=== PATIENT | female | born 1955 | race Caucasian/White ===

== ENCOUNTER 2018-10-25 19:25 | Emergency (ER) | payer OTHER ==
--- OUTSIDE RECORDS SUMMARY | 2018-10-25 19:40 | XMS REPORT | Continuity of Care Document ---
:1955 External Reference #:[id number] Author Name Pranav Spicer M.D. Address [address] [place] [address] Care Team Providers Name Role Phone Alf Luong M.D. Primary Care Physician Unavailable Payers Date Identification Numbers Payment Provider Subscriber Policy Number: [id number] [employer] Ppo/Pos/Epo/Nap Sulema Carter PayID: [id number] [address] [place] [address] Problems Active Problems Provider Date History of non-Hodgkins lymphoma Onset: Osteoporosis Onset: Osteopenia Onset: Vitreous degeneration Pranav Spicer M.D. Onset: 07/02/2016 Ocular hypertension Pranav Spicer M.D. Onset: 07/02/2016 Nuclear senile cataract Pranav Spicer M.D. 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 ETOH Use Drinks 5 Alcoholic Beverages Per Week Tobacco Use Start: Unknown End: Patient is a former 7 years tobacco use Unknown smoker in her 20's Recreational Drug Use Denies Drug Use Smoking Status Reviewed: 09/29/18 Patient is a former 7 years tobacco use smoker in her 20's Allergies, Adverse Reactions, Alerts Description No Known Drug Allergies Medications Active Medications SIG Qnty Indications Ordering Provider Date Multivitamin Adult Unknown Tablets Pantoprazole Sodium 1 a day Unknown 20mg Tablets DR History Medications Calcium 1000 + D Unknown - 08/20/2017 [id number] Tablets Procedures Date Code Description Status 08/24/2017 11329 Visual Field Exam Extended Completed 08/24/2017 65733 Est Patient Comprehensive Exam Completed 08/04/2016 29413 Determination Of Refractive State Completed 08/04/2016 21936 Pachymetry Completed 07/02/2016 44091 Scanning Computerized Ophthalmic Diagnostic Imag Posterior Completed Seg On 07/02/2016 00363 New Patient Comprehensive Exam Completed Encounters Type Date Location Provider Dx Diagnosis Office Visit 08/04/2016 [facility] Lee, Pranav Spicer, H43.811 Vitreous 10:00a , tatyana Leonard degeneration, right eye H40.053 Ocular hypertension, bilateral Plan of Treatment 09/29/2018 - Pranav Spicer M.D.H40.053 Ocular hypertension, bilateralComments:Smoking can increase the risk of developing or worsening any eye related disease, as well as affect your overall health. If you are a smoker , we strongly recommend that you quit.If you are not a smoker, we strongly recommend that you do not start. You have Ocular Hypertension in both eyes. This means that your eye pressure is higher than average, but you have not been diagnosed with Glaucoma.Follow up:2 Year Follow Up DFE, OCT ON You can expect to have your eyes dilated at your next visit. If Dr. Spicer orders any additional testing, it may require extra time. We recommend that you bring sunglasses, as dilation drops often make you light sensitive until they wear off. We always recommend you bring someone to drive you home if you are uncomfortable driving with your eyes dilated. If you have anyquestions before your next visit, feel free to call our office at .H43.817 Vitreous degeneration, bilateralComments:You have a Posterior Vitreous Detachment. If you have any changes in your floaters or flashing lights, please contact this office.H25.13 Age-related nuclear cataract, bilateralComments:You have been diagnosed with cataracts. If you are happy with your vision as it is now, then we willsee you at your next scheduled appointment. If you feel like your vision is getting worse before your scheduled appointment, please call Kristen at [phone].
--- NOTE | 2018-10-25 21:14 | ED ---
Throat Pain/Nasal Congestion - HPI Summary HPI Summary: A 63 y/o female presents to [facility] with a chief complaint of right ear pain below the lobe of her ear since yesterday. At triage she rated her pain as a 3/ 10 in severity and also states that she felt feverish. At triage a temperature of 99 is noted. 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 - History of Current Complaint Chief Complaint: EDEarPain Time Seen by Provider: 10/25/18 21:03 Hx Obtained From: Patient Onset/Duration: Sudden Onset, Lasting Hours, Still Present Severity: Mild Associated Signs And Symptoms: Positive: Negative Cough: None - Allergies/Home Medications Allergies/Adverse Reactions: Allergies Allergy/AdvReac Type Severity Reaction Status Date / Time No Known Allergies Allergy Unverified 10/25/18 21:01 PMH/Surg Hx/FS Hx/Imm Hx Musculoskeletal History: Reports: Hx Osteoporosis Denies: Hx Rheumatoid Arthritis Sensory History: Denies: Hx Deafness EENT History: Denies: Hx Deafness - Cancer History Hx Chemotherapy: Yes - [id number]- 15 YEARS AGO Hx Radiation Therapy: Yes Infectious Disease History: No Infectious Disease History: Denies: Traveled Outside the [place] in Last 30 Days - Family History Known Family History: Negative: Blood Disorder - Social History Alcohol Use: Occasionally Substance Use Type: Reports: None Smoking Status (MU): Former Smoker Review of Systems Negative: Fever - but patient reports feeling hot 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 (-) Distressed Skin: Warm, Dry HENT: Swelling and mild erythema anterior to the ear on face extending just below the jaw, right cerumen impaction, left TM is normal, right external auditory canal and ear appears normal, teeth normal but in an attempt to express fluid from stensen duct, no fluid or discharge can be expressed. Eyes: Conjunctiva normal Neck: Musculoskeletal ROM normal neck. (-) JVD, (-) Stridor, (-) Tracheal deviation Cardio: Rhythm regular, rate normal, Heart sounds normal; Intact distal pulses; The pedal pulses are 2+ and symmetric. Radial pulses are 2+ and symmetric. (-) Murmur Pulmonary/Chest wall: Effort normal. (-) Respiratory distress, (-) Wheezes, (-) Rales Abd: Soft, (-) tenderness, (-) Distension, (-) Guarding, (-) Rebound Musculoskeletal: (-) Edema Lymph: (-) Cervical adenopathy Neuro: Alert, Oriented x3 Psych: Mood and affect Normal Triage Information Reviewed: Yes Vital Signs On Initial Exam: Initial Vitals Temp Pulse Resp BP Pulse Ox 99 F 91 18 155/114 100 10/25/18 19:28 10/25/18 19:28 10/25/18 19:28 10/25/18 19:28 10/25/18 19:28 Vital Signs Reviewed: Yes Diagnostics - Vital Signs Vital Signs Temp Pulse Resp BP Pulse Ox 10/25/18 19:28 99 F 91 18 155/114 100 - Laboratory Lab Statement: Any lab studies that have been ordered have been reviewed, and results considered in the medical decision making process. EENT Course/Dx - Course Course Of Treatment: A 63 y/o female presents to [facility] with a chief complaint of right ear pain below the lobe of her ear since yesterday. The physical exam revealed swelling and mild erythema anterior to the ear on face extending just below the jaw, right cerumen impaction, left TM is normal, right external auditory canal and ear appears normal, teeth normal but in an attempt to express fluid from stensen duct, no fluid or discharge can be expressed. The patient will be discharged with a prescription for Augmentin and follow up with her PCP and ENT. The patient is agreeable with this plan. - Diagnoses Provider Diagnoses: Periostitis Discharge - Sign-Out/Discharge Documenting (check all that apply): Patient Departure - DC Patient Received Moderate/Deep Sedation with Procedure: No - Discharge Plan Condition: Stable Disposition: HOME Prescriptions: Amoxicillin/Clavulanate TAB* [Augmentin TAB 875*] 875 mg PO BID #19 tab Patient Education Materials: Sialoadenitis (ED) Print Language: HONG KONGER Referrals: Alf Luong MD [Primary Care Provider] - Bharathi Harrison MD [Medical Doctor] - - Billing Disposition and Condition Condition: STABLE Disposition: Home - Attestation Statements Document Initiated by Scribe: Yes Documenting Scribe: Rajesh Clifton Provider For Whom Scribe is Documenting (Include Credential): Thelma Frost MD Scribe Attestation: Rajesh Parra, scribed for Themla Marrero MD on 10/25/18 at 2325. Scribe Documentation Reviewed: Yes Provider Attestation: The documentation as recorded by the scribe, Rajesh Clifton accurately reflects the service I personally performed and the decisions made by me, Thelma Marrero MD Status of Scribe Document: Viewed
[2018-10-25] MEDS ORDERED: Amoxicillin/Clavulanate TAB* 875 MG PO ONE (21:30)
[2018-10-25 21:42] VITALS: BP 141/99
== END 2018-10-25 21:42 | disposition home or self-care (01) ==
LOC: ED 19:25
DX: M86.9 Osteomyelitis, unspecified (principal); Z87.891 Personal history of nicotine dependence
CPT/HCPCS: 99282; A9270-GY